=== PATIENT | female | born 1990 | race Caucasian/White ===

== ENCOUNTER 2020-03-10 22:53 | Inpatient (IN) ==
[~2020-03-10 22:53] MED LIST: *HR* FentaNYL (PF) 100 MCG/2 ML VIAL IVP PRN; Azithromycin 500 MG in 0.9 % Sodium Chloride 250 ML IVPB ONE; Famotidine 20 MG/2 ML VIAL IVP PRN; Lidocaine 1% 20 ML MDV INFILT PRN; Metoclopramide 10 MG/2 ML VIAL IVP PRN; Naloxone 0.4 MG/ML INJ IVP PRN; Ondansetron 4 MG/2 ML VIAL IVP PRN
[2020-03-10] MEDS ORDERED: Ringers Solution, Lactated 1,000 ML IVC SCH (23:00)
[2020-03-10 23:05] LABS: Basophils % 0.2 %; Eosinophils # 0.1 K/mcL (0.0-0.6); Eosinophils % 0.6 %; Hematocrit 40.2 % (35.3-44.9); Hemoglobin 12.9 g/dL (11.5-15.4); Lymphocytes # 2.5 K/mcL (0.6-4.6); Lymphocytes % 20.3 %; Mean Corpuscular HGB Conc 32.1 g/dL (31.6-35.5); Mean Corpuscular Hemoglobin 27.7 pg (28.0-33.3); Mean Corpuscular Volume 86.5 fL (83.0-100.0); Mean Platelet Volume 10.3 fL (9.4-12.4); Monocytes # 0.8 K/mcL (0.0-1.3); Monocytes % 6.4 %; Neutrophils # 8.9 K/mcL (1.6-8.9); Platelet Count 213 K/mcL (140-400); Red Blood Count 4.65 M/mcL (3.82-4.97); Red Cell Distribution Width 15.6 % (11.5-14.5); Segmented Neutrophils % 71.5 %; White Blood Count 12.5 K/mcL (4.3-11.1)
[2020-03-10 23:19] LABS: Amphetamine Screen,Urine Negative ng/mL (Cutoff=1000); Barbiturate Screen,Urine Negative ng/mL (Cutoff=200); Benzodiazepines Screen,Urine Negative ng/mL (Cutoff=200); Cannabinoid Screen,Urine Negative ng/mL (Cutoff = 50); Cocaine Screen,Urine Negative ng/mL (Cutoff= 300); Opiate Screen,Urine Negative ng/mL (Cutoff=300); Phencyclidine Screen,Urine Negative ng/mL (Cutoff=25)
[2020-03-11] MEDS ORDERED: miSOPROStoL 25 MCG TABLET PO PRN (02:35)
[2020-03-11] MEDS ORDERED: EPHEDrine 50 MG/ML VIAL IVP PRN (07:55)
[2020-03-11] MEDS ORDERED: Epidural Premix (fent/bupiv) 110 ML EP SCH (08:00)
[2020-03-11] MEDS ORDERED: Epidural Premix (fent/bupiv) 110 ML EP ONE (08:03)
[2020-03-11] MEDS ORDERED: Oxytocin 20 units/ LR 1000 mL 20 UNIT/1,000 ML BAG IVC SCH ×2 (09:30→16:38)
[2020-03-11] MEDS ORDERED: Ropivacaine/PF 0.2% 20 ML VIAL ONE (10:47)
[2020-03-11] MEDS ORDERED: Benzocaine/Menthol 56 GM AEROSOL SPRAY TP PRN (16:38)
[2020-03-11] MEDS ORDERED: Measles/Mumps/Rubella Vacc 0.5 ML VIAL SQ PRN (16:38)
[2020-03-11] MEDS ORDERED: Oxytocin 20 units/ LR 1000 mL 20 UNIT/1,000 ML BAG IVC ONE (16:38)
[2020-03-11] MEDS ORDERED: Lanolin 7 G OINT...G. TP PRN (16:38)
[2020-03-11] MEDS ORDERED: Acetaminophen 325 MG TABLET PO PRN (16:38)
[2020-03-11] MEDS ORDERED: Rho Immune Globulin 1,500 UNIT SYRINGE IM PRN (16:38)
[2020-03-11] MEDS: Ibuprofen 600 MG TABLET PO PRN (21:28)
[2020-03-12 07:07] LABS: Basophils % 0.1 %; Eosinophils # 0.1 K/mcL (0.0-0.6); Eosinophils % 0.4 %; Hematocrit 31.3 % (35.3-44.9); Immature Granulocytes % 0.7 % (0-4); Lymphocytes # 2.3 K/mcL (0.6-4.6); Lymphocytes % 15.8 %; Mean Corpuscular HGB Conc 31.9 g/dL (31.6-35.5); Mean Corpuscular Hemoglobin 28.3 pg (28.0-33.3); Mean Corpuscular Volume 88.7 fL (83.0-100.0); Mean Platelet Volume 10.4 fL (9.4-12.4); Monocytes % 6.8 %; Neutrophils # 11.2 K/mcL (1.6-8.9); Platelet Count 167 K/mcL (140-400); Red Blood Count 3.53 M/mcL (3.82-4.97); Red Cell Distribution Width 15.9 % (11.5-14.5); Segmented Neutrophils % 76.2 %; White Blood Count 14.7 K/mcL (4.3-11.1)
[2020-03-12] MEDS ORDERED: Prenatal Vit/FA 1 EACH TABLET PO SCH (09:00)
[2020-03-12 09:30] VITALS: BP 106/70
[2020-03-12] MEDS: Ibuprofen 600 MG TABLET PO PRN (10:36)
== END 2020-03-12 16:55 | disposition home or self-care (01) | DRG 807 ==
LOC: 1NENULAB → 1NENUOBS 03-11 16:25
PROVIDERS: ADMIT Obstetrics & Gynecology; ATTEND Obstetrics & Gynecology

== ENCOUNTER 2021-03-02 08:00 | Inpatient (IN) ==
[2021-03-02] MEDS ORDERED: Famotidine 20 MG/2 ML VIAL IVP PRN (08:15)
[2021-03-02] MEDS ORDERED: Naloxone 0.4 MG/ML INJ IVP PRN (08:15)
[2021-03-02] MEDS ORDERED: *HR* Nalbuphine 10 MG/ML AMPUL IV PRN (08:15)
[2021-03-02] MEDS ORDERED: Ondansetron 4 MG/2 ML VIAL IVP PRN (08:15)
[2021-03-02] MEDS ORDERED: Azithromycin 500 MG in 0.9 % Sodium Chloride 250 ML IVPB PRN (08:15)
[2021-03-02] MEDS ORDERED: Metoclopramide 10 MG/2 ML VIAL IVP PRN (08:15)
[2021-03-02] MEDS ORDERED: Oxytocin 20 units/ LR 1000 mL 20 UNIT/1,000 ML BAG IVC SCH ×2 (08:15→17:32)
[2021-03-02] MEDS ORDERED: EPHEDrine 50 MG/ML VIAL IVP PRN (09:34)
[2021-03-02] MEDS ORDERED: Epidural Premix (fent/bupiv) 110 ML EP SCH (09:45)
[2021-03-02] MEDS: Ringers Solution, Lactated 1,000 ML IVC SCH ×2 (10:00→16:45)
[2021-03-02 10:06] LABS: Basophils % 0.2 %; Eosinophils % 0.4 %; Hematocrit 31.7 % (35.3-44.9); Hemoglobin 9.5 g/dL (11.5-15.4); Immature Granulocytes % 0.6 % (0-4); Lymphocytes # 2.2 K/mcL (0.6-4.6); Lymphocytes % 21.9 %; Mean Corpuscular Hemoglobin 23.4 pg (28.0-33.3); Mean Corpuscular Volume 78.1 fL (83.0-100.0); Mean Platelet Volume 9.6 fL (9.4-12.4); Monocytes # 0.6 K/mcL (0.0-1.3); Monocytes % 5.8 %; Neutrophils # 7.3 K/mcL (1.6-8.9); Platelet Count 264 K/mcL (140-400); Red Blood Count 4.06 M/mcL (3.82-4.97); Red Cell Distribution Width 14.4 % (11.5-14.5); Segmented Neutrophils % 71.1 %; White Blood Count 10.2 K/mcL (4.3-11.1)
[2021-03-02 10:10] LABS: Amphetamine Screen,Urine Negative ng/mL (Cutoff=1000); Barbiturate Screen,Urine Negative ng/mL (Cutoff=200); Benzodiazepines Screen,Urine Negative ng/mL (Cutoff=200); Cannabinoid Screen,Urine Negative ng/mL (Cutoff = 50); Cocaine Screen,Urine Negative ng/mL (Cutoff= 300); Opiate Screen,Urine Negative ng/mL (Cutoff=300); Phencyclidine Screen,Urine Negative ng/mL (Cutoff=25)
[2021-03-02] MEDS ORDERED: Measles/Mumps/Rubella Vacc 0.5 ML VIAL SQ PRN (17:32)
[2021-03-02] MEDS ORDERED: Acetaminophen 325 MG TABLET PO PRN (17:32)
[2021-03-02] MEDS ORDERED: Lanolin 7 G OINT...G. TP PRN (17:32)
[2021-03-02] MEDS ORDERED: Benzocaine/Menthol 56 GM AEROSOL SPRAY TP PRN (17:32)
[2021-03-02] MEDS ORDERED: Rho Immune Globulin 1,500 UNIT SYRINGE IM PRN (17:32)
[2021-03-02] MEDS ORDERED: Ibuprofen 600 MG TABLET PO PRN (17:32)
[2021-03-03 05:32] LABS: Basophils % 0.2 %; Eosinophils % 0.3 %; Hematocrit 24.5 % (35.3-44.9); Immature Granulocytes % 0.5 % (0-4); Lymphocytes # 2.3 K/mcL (0.6-4.6); Lymphocytes % 18.5 %; Mean Corpuscular HGB Conc 31.4 g/dL (31.6-35.5); Mean Corpuscular Hemoglobin 24.5 pg (28.0-33.3); Mean Platelet Volume 9.8 fL (9.4-12.4); Monocytes # 0.9 K/mcL (0.0-1.3); Monocytes % 6.9 %; Neutrophils # 9.2 K/mcL (1.6-8.9); Platelet Count 224 K/mcL (140-400); Red Blood Count 3.14 M/mcL (3.82-4.97); Red Cell Distribution Width 14.6 % (11.5-14.5); Segmented Neutrophils % 73.6 %; White Blood Count 12.5 K/mcL (4.3-11.1)
[2021-03-03 05:34] LABS: Hemoglobin 7.7 g/dL (11.5-15.4)
[2021-03-03 08:01] VITALS: O2SAT 98
[2021-03-03] MEDS ORDERED: Prenatal Vit/FA 1 EACH TABLET PO SCH (09:00)
[2021-03-03 15:23] VITALS: BP 115/68; PULSE 82; TEMP 98.1
== END 2021-03-03 17:37 | disposition home or self-care (01) | DRG 807 ==
LOC: 1NENULAB 08:06 → 1NENUOBS 18:39
PROVIDERS: ADMIT Student in an Organized Health Care Education/Training Program; ATTEND Student in an Organized Health Care Education/Training Program